=== PATIENT | female | born 1950 | race Caucasian/White ===

== ENCOUNTER 2020-11-04 09:03 | Day surgery (SDC) | payer MEDICARE, BC ==
[~2020-11-04 09:03] MED LIST: Lactated Ringers 1,000 ML IV SCH
[2020-11-04] MEDS ORDERED: Propofol 200 MG/20 ML SDV ONE (09:45)
[2020-11-04] MEDS ORDERED: fentaNYL 100 MCG/2 ML SDV ONE (09:46)
[2020-11-04 11:21] VITALS: BP 105/55; PULSE 57
--- NOTE | 2020-11-04 12:07 | OR ---
DATE OF SURGERY: 11/04/2020. REFERRING PROVIDER: Krissy Reyes MD PRE-OPERATIVE DIAGNOSES: 1. Screening colonoscopy. The patient's last colonoscopy was about 7 years ago per patient report. 2. Positive family history of colon cancer in brother who was diagnosed in his mid 50s. 3. History of intermittent hemorrhoid. POST-OPERATIVE DIAGNOSES: 1. 4 mm polyp at 60 cm, removed using cold forceps. 2. Mild hemorrhoids, not acutely inflamed. 3. Normal-appearing distal ileum. PROCEDURE: Colonoscopy with polypectomy x1 using cold forceps. SURGEON: Wolf Pickering M.D. ANESTHESIA: Monitored anesthesia care. BOWEL PREP: Good. Kat is a 70-year-old female who was brought to the endoscopy suite after discussing risks and benefits of the procedure. Informed consent was obtained for conscious sedation and colonoscopy with or without biopsy and/or polypectomy. We also discussed possibility of missed lesions. Pre-procedure exam was unremarkable. IV, oxygen, and monitors were placed. The patient was placed in the left lateral decubitus position. Sedation was administered and a digital rectal exam was performed and unremarkable except for the mild hemorrhoids, not acutely inflamed. Colonoscope was passed into the rectum and slowly advanced all the way to the cecum. Cecum was viewed and photographed. Ileocecal valve was intubated and distal ileum was normal in appearance. The colonoscope was slowly withdrawn and the mucosa was closed observed in a direct circumferential manner. The ascending colon was unremarkable. The transverse colon revealed 4 mm polyp at 60 cm, removed using couple bites of cold forceps. The descending colon was unremarkable. The sigmoid colon was unremarkable. Retroflexion was performed and rectal mucosa revealed some mild hemorrhoids, not acutely inflamed. Scope was removed. The patient tolerated the procedure well. The patient was monitored until that baseline status. Discharge instructions were reviewed and the patient was discharged in good condition. COMPLICATIONS: None. TOTAL TIME: 17 minutes. ESTIMATED BLOOD LOSS: Less than 1 mL. RECOMMENDATIONS/FOLLOW-UP: We will await results of path report to determine ideal followup interval. I will have the patient hold her aspirin for 2 days to limit any chance of bleeding from polypectomy site. I would like to kindly thank Dr. Reyes for this referral. DMB: 11/04/2020 11:08:03 MODL: 11/04/2020 11:37:40 /[id number]
== END 2020-11-04 12:15 | disposition home or self-care (01) ==
LOC: VM.SDS 09:03
PROVIDERS: ATTEND Family Medicine
DX: Z12.11 Encounter for screening for malignant neoplasm of colon (principal); K63.5 Polyp of colon; K64.9 Unspecified hemorrhoids; I10 Essential (primary) hypertension; R73.9 Hyperglycemia, unspecified; E78.00 Pure hypercholesterolemia, unspecified; G44.031 Episodic paroxysmal hemicrania, intractable; G47.33 Obstructive sleep apnea (adult) (pediatric); M51.36 Other intervertebral disc degeneration, lumbar region; K21.9 Gastro-esophageal reflux disease without esophagitis; M54.12 Radiculopathy, cervical region; H81.13 Benign paroxysmal vertigo, bilateral; E66.01 Morbid (severe) obesity due to excess calories; Z68.38 Body mass index [BMI] 38.0-38.9, adult; Z79.82 Long term (current) use of aspirin; Z79.899 Other long term (current) drug therapy; Z80.0 Family history of malignant neoplasm of digestive organs; Z98.890 Other specified postprocedural states
CPT/HCPCS: 00812; 88305; J2704; J3010; J7120